=== PATIENT | male | born 1965 ===

== ENCOUNTER 2019-01-04 09:15 | Emergency (ER) | payer OTHER ==
[~2019-01-04] VITALS: Ht 185.4 cm; Wt 149.7 kg
[2019-01-04] MEDS ORDERED: HYZAAR 100-251 EACH (10:16)
[2019-01-04] MEDS ORDERED: TOPROL XL25 MG (10:16)
== END 2019-01-04 15:18 | disposition home or self-care (01) ==
LOC: ER 09:15
DX: M79.601 Pain in right arm (principal)